=== PATIENT | male | born 1955 | race Hispanic/Latino ===

== ENCOUNTER 2019-05-25 20:09 | Emergency (ER) | payer OTHER ==
[~2019-05-25] VITALS: Ht 175.3 cm; Wt 86.2 kg
--- OUTSIDE RECORDS SUMMARY | 2019-05-25 20:11 | XMS REPORT ---
Author Author [facility] Address Unknown Phone Unavailable Care Team Providers Care Instructor [employer] Name Role Phone Unavailable Unavailable Problems This patient has no known problems. Allergies, Adverse Reactions, Alerts This patient has no known allergies or adverse reactions. Medications This patient has no known medications. Encounters Start Date/Time End Date/Time Encounter Type Admission Type Attending Clinicians Care Facility Care Department Encounter ID 2019-05-08 17:27:00 2019-05-08 16:16:00 Inpatient E [id number] [id number]
[2019-05-25 21:25] VITALS: BP 123/77
== END 2019-05-25 21:39 | disposition home or self-care (01) ==
LOC: ER 20:09
DX: E11.621 Type 2 diabetes mellitus with foot ulcer (principal); L03.116 Cellulitis of left lower limb; L03.032 Cellulitis of left toe; I10 Essential (primary) hypertension; E03.9 Hypothyroidism, unspecified
CPT/HCPCS: 99282